=== PATIENT | female | born 1945 | race Caucasian/White ===

== ENCOUNTER → 2019-02-15 11:23 | Outpatient (CLI) | payer MEDICARE, BC, SELFPAY ==
--- NOTE | 2019-02-15 | DI.US.S_ITS ---
PROCEDURE: US PELVIC COMPLETE INDICATIONS: FAMILY HX OF MALIGNANT NEOPLASM OF OVARY TECHNIQUE: Real-time scanning was performed of the pelvic organs, with image documentation. Additional endovaginal scanning was necessary due to incomplete visualization of the adnexal and endometrial structures by transabdominal scanning. COMPARISON: None. FINDINGS: Transabdominal scanning: Limited scanning through the kidneys shows no hydronephrosis. No pathologic free abdominal or pelvic fluid. Endovaginal scanning: Uterus: Uterus is normal in size at 7.1 x 2.7 x 4.0 cm. The endometrium measures 4.5 mm in combined thickness. Ovaries: Normal ovaries bilaterally measuring 2.0 x 1.2 x 1.1 cm on the right and 2.2 x 1.4 x 1.2 cm on the left. IMPRESSION: Normal exam. Dictated by: Rich GANT Interpreted: Mary Pereira MD on 02/15/2019 at 12:52 Approved by: Mary Pereira M.D. on 02/15/2019 at 13:48
== END ==
PROVIDERS: PCP Family Medicine; Visit Provider Family Medicine
DX: Z80.41 Family history of malignant neoplasm of ovary (principal)
CPT/HCPCS: 76830; 76856

== ENCOUNTER 2019-10-02 18:32 | Emergency (ER) | payer MEDICARE, BC, SELFPAY ==
--- NOTE | 2019-10-02 18:34 | DI.US.S_ITS ---
PROCEDURE: US PERIPH VENOUS LOW EXTREM LT INDICATIONS: LT LEG SWELLING TECHNIQUE: Real-time imaging, as well as color and pulse Doppler interrogation, were performed of the lower extremity deep veins from the inguinal ligament to the popliteal fossa. COMPARISON: None. FINDINGS: The common femoral, femoral and popliteal veins are normally compressible, and free of intraluminal thrombus. Color and pulse Doppler demonstrate normal phasic intraluminal flow. There is normal augmentation response to distal compression maneuver. 5.2 x 1.5 x 4.4 cm popliteal cyst. IMPRESSION: No evidence of deep vein thrombosis involving the right lower extremity. Dictated by: Rebecca Escudero MD, PhD on 10/02/2019 at 19:28 Approved by: Rebecca Escudero MD, PhD on 10/02/2019 at 19:29
[2019-10-02 18:40] VITALS: BP 176/79; PULSE 70; RESP 16; TEMP 36.7; O2SAT 98
--- NOTE | 2019-10-02 18:43 | ED_ITS ---
HPI - Extremity Problem General Chief complaint: Extremity Problem,Nontraumatic Stated complaint: DVT Time Seen by Provider: 10/02/19 18:34 Source: patient Mode of arrival: Ambulatory Limitations: no limitations History of Present Illness HPI Narrative: Patient is a 74-year-old female sent over from [facility] for an ultrasound to further evaluated potential left lower extremity DVT. Patient states that for the past couple days she has noticed swelling in her left ankle and also pain behind her left knee. She has no chest pain or shortness of breath. No changes in the skin. No specific trauma. Contacted her primary provider who saw her today who requested that she come to the emergency department for further evaluation. Patient has never had a DVT in the past. Has not tried anything for symptoms right arrival. Related Data Home Medications Medication Instructions Recorded Confirmed aspirin [Aspirin Childrens] 81 mg PO DAILY 10/02/19 10/02/19 Allergies Allergy/AdvReac Type Severity Reaction Status Date / Time No Known Drug Allergies Allergy Verified 10/02/19 18:43 Review of Systems Constitutional Constitutional: Denies fever(s) and Denies headache(s) ENT Ears, Nose, Mouth, and Throat: Denies headache(s) Cardiovascular Cardiovascular: Denies chest pain and Denies dyspnea Respiratory Respiratory: Denies dyspnea Gastrointestinal Gastrointestinal: Denies abdominal pain and Denies vomiting Musculoskeletal Musculoskeletal: Denies myalgias, Denies arthralgias and Denies tingling Comments: Pain in left knee, left ankle swelling Integumentary/Breasts Skin/Breast: Denies lesions and Denies rash Neurologic Neurologic: Denies behavioral changes, Denies headache(s) and Denies tingling Psychiatric Psychiatric: Denies behavioral changes Hematologic/Lymphatic Hematologic/Lymphatic: Denies easy bleeding and Denies easy bruising Patient History Medical History Healthy adult (Acute) Social History Smoking Status: Never smoker Smoking Status: Never smoker alcohol intake frequency: 3 or more drinks per day Alcohol type: wine Substance Use Type: does not use Exam Initial Vital Signs Initial Vital Signs: Vital Signs Temperature 98.1 F 10/02/19 18:40 Pulse Rate 70 10/02/19 18:40 Respiratory Rate 16 10/02/19 18:40 Blood Pressure 176/79 H 10/02/19 18:40 Pulse Oximetry 98 10/02/19 18:40 Const General: cooperative, comfortable and well developed Cardio Pulses: dorsalis pedis present on the left Skin Lesions: no lesions Rashes: no rashes Extrem Other: Very mild swelling to left ankle. Very mild tenderness on the left knee. Otherwise left lower extremity exam unremarkable Psych Appearance: grossly normal and well kempt Scores Wells' Criteria for DVT Active Cancer (Treatment within 6 months): No Bedridden recently >3 days or major surgery within 4 weeks: No Calf Swelling >3cm compared to other leg: No Collateral (nonvericose) superficial veins present: No Entire leg swollen: No Localized tenderness along the deep vein system: Yes Pitting edema, confined to symtomatic leg: No Paralysis, paresis, or recent plaster immobilization of ext: No Previously documented DVT: No Alternative dx to DVT as likely or more likely: Yes Wells' criteria for DVT: -1 Course Orders Ordered: ED Orders 10/02/19 18:34 US periph venous low extrem lt Stat 10/02/19 19:24 Basic Metabolic Panel Stat Complete Blood Count AUTO DIFF Stat Partial Thromboplastin Time Stat Prothrombin Time INR Stat Vital Signs Vital signs: Vital Signs - 8 hr 10/02/19 18:40 10/02/19 20:08 Temperature 98.1 F Pulse Rate 70 78 Respiratory Rate 16 18 Blood Pressure 176/79 H Blood Pressure [Left Arm] 140/80 Pulse Oximetry 98 99 MDM - Extremity (Nontraumatic) Lab Data Attestation: I reviewed the patient's lab results. Result diagrams: 10/02/19 19:24 10/02/19 19:24 Labs: Lab Results 10/02/19 10/02/19 10/02/19 Range/Units 19:24 19:24 19:24 WBC 5.7 (4.5-11.0) X10^3/uL RBC 4.06 (4.0-5.2) X10^6/uL Hgb 12.6 (12.0-16.0) g/dL Hct 37.4 (36-46) % MCV 92.2 (80-100) fL MCH 31.1 (26-34) PG MCHC 33.7 (30-36) % RDW 13.9 (11.6-14.8) % Plt Count 166 (150-400) X10^3/uL Neut % (Auto) 52.1 (50-75) % Lymph % (Auto) 34.8 (25-40) % [place] % (Auto) 9.6 (3-14) % Eos % (Auto) 3.0 (2-4) % Baso % (Auto) 0.5 (0-2) % Neut # (Auto) 3000 (5582-0941) /uL Lymph # (Auto) 2000 (3864-0767) /uL [place] # (Auto) 500 (0-900) /uL Eos # (Auto) 200 (0-450) /uL Baso # (Auto) 0 (0-100) /uL PT 11.2 (10.1-12.7) SECONDS INR 1.0 (0.9-1.3) Sodium 141 (137-145) mmol/L Potassium 4.1 (3.4-5.1) mmol/L Chloride 108 H (98-107) mmol/L Carbon Dioxide 28 (22-32) mmol/L BUN 16 (7-17) mg/dL Creatinine 0.75 (0.52-1.04) mg/dL Estimated GFR > 60.0 (>60) mL/min BUN/Creatinine Ratio 21.3 (6-22) Glucose 94 (80-110) mg/dL Calcium 9.4 (8.4-10.2) mg/dL Imaging Data US - DVT: Radiologist's Impression: [place] [id number] Ultrasound Report Addendum Patient: Juan Figueroa#: [id number] : 6Acct:[id number] Age/Sex: 74 / FDate of Service: 10/02/19 Loc: ED Accession Number: [id number] Procedure: US periph venous low extrem lt Ordering Provider: Rufus Warren D.O. ADDENDUM CORRECTION Corrected on: 10/02/2019; PROCEDURE: US PERIPH VENOUS LOW EXTREM LT INDICATIONS: LT LEG SWELLING TECHNIQUE: Real-time imaging, as well as color and pulse Doppler interrogation, were performed of the lower extremity deep veins from the inguinal ligament to the popliteal fossa. COMPARISON: None. FINDINGS: The common femoral, femoral and popliteal veins are normally compressible, and free of intraluminal thrombus. Color and pulse Doppler demonstrate normal phasic intraluminal flow. There is normal augmentation response to distal compression maneuver. 5.2 x 1.5 x 4.4 cm popliteal cyst. IMPRESSION: No evidence of deep vein thrombosis involving the left lower extremity. Dictated by: Rebecca Escudero MD, PhD on 10/02/2019 at 19:28 Approved by: Rebecca Escudero MD, PhD on 10/02/2019 at 19:29 Dictated by: Rebecca Escudero MD, PhD on 10/02/2019 at 19:44 Approved by: Rebecca Escudero MD, PhD on 10/02/2019 at 19:44 Addendum Dictated By:Rebecca Escudero MD Addendum Signed By: Addendum Cosigned By: DD/ /12/1947 TD/TT: 10/02/[birth year]04/12/1947 PROCEDURE: US PERIPH VENOUS LOW EXTREM LT INDICATIONS: LT LEG SWELLING TECHNIQUE: Real-time imaging, as well as color and pulse Doppler interrogation, were performed of the lower extremity deep veins from the inguinal ligament to the popliteal fossa. COMPARISON: None. FINDINGS: The common femoral, femoral and popliteal veins are normally compressible, and free of intraluminal thrombus. Color and pulse Doppler demonstrate normal phasic intraluminal flow. There is normal augmentation response to distal compression maneuver. 5.2 x 1.5 x 4.4 cm popliteal cyst. IMPRESSION: No evidence of deep vein thrombosis involving the right lower extremity. Dictated by: Rebecca Escudero MD, PhD on 10/02/2019 at 19:28 Approved by: Rebecca Escudero MD, PhD on 10/02/2019 at 19:29 [facility] Narrative Medical decision making narrative: Patient's ultrasound unremarkable. No chest pain shortness of breath, labs unremarkable. Low suspicion for fracture. Will hold on further workup for now. Patient was given return precautions and follow-up instructions. She expressed understanding and agreement. Discharge Plan Departure Patient Disposition: Home Clinical Impression: Left leg swelling Discharge Date/Time: 10/02/19 20:11 Instructions: DI for Peripheral Edema, Unilateral Activity Restrictions/Additional Instructions: There was no evidence of a blood clot on the ultrasound today. Recommend that you keep your scheduled follow-up with your primary provider. Return to the emergency department for any new or worsening symptoms Prescriptions: No Action aspirin [Aspirin Childrens] 81 mg Tablet,Chewable 81 mg PO DAILY RF: 0 Referrals: Rufus Galloway [Primary Care Provider] -
[2019-10-02 19:33] LABS: Add Manual Diff / Slide Review NO; Basophils Absolute Auto 0 /uL (0-100); Basophils Percent Auto 0.5 % (0-2); Eosinophils Absolute Auto 200 /uL (0-450); Hematocrit 37.4 % (36-46); Hemoglobin 12.6 g/dL (12.0-16.0); Lymphocytes Absolute Auto 2000 /uL (1100-4500); Lymphocytes Percent Auto 34.8 % (25-40); Mean Corpuscular HGB Conc 33.7 % (30-36); Mean Corpuscular Hemoglobin 31.1 PG (26-34); Mean Corpuscular Volume 92.2 fL (80-100); Monocytes Absolute Auto 500 /uL (0-900); Monocytes Percent Auto 9.6 % (3-14); Neutrophils Absolute Auto 3000 /uL (1500-7000); Neutrophils Percent Auto 52.1 % (50-75); Platelet Count 166 X10^3/uL (150-400); Red Blood Cell Count 4.06 X10^6/uL (4.0-5.2); Red Cell Distribution Width 13.9 % (11.6-14.8); White Blood Cell Count 5.7 X10^3/uL (4.5-11.0)
[2019-10-02 20:08] VITALS: BP 140/80; PULSE 78; RESP 18; O2SAT 99
[2019-10-02 20:15] LABS: BUN Creatinine Ratio 21.3 (6-22); Blood Urea Nitrogen 16 mg/dL (7-17); Calcium 9.4 mg/dL (8.4-10.2); Carbon Dioxide 28 mmol/L (22-32); Chloride 108 mmol/L (98-107); Estimated Glomerular Filt Rate > 60.0 mL/min (>60); Glucose 94 mg/dL (80-110); HEMOLYSIS < 15 (0-50); Potassium 4.1 mmol/L (3.4-5.1); Sodium 141 mmol/L (137-145)
[2019-10-02 20:23] LABS: Prothrombin Time 11.2 SECONDS (10.1-12.7)
[2019-10-02 20:25] LABS: PTT Partial Thromboplastin Tim 31 SECONDS (26.4-36.2)
== END 2019-10-02 20:11 | disposition home or self-care (01) ==
PROVIDERS: Emergency Provider Emergency Medicine; PCP Family Medicine
DX: M79.89 Other specified soft tissue disorders (principal); M25.562 Pain in left knee
CPT/HCPCS: 80048; 85025; 85610; 85730; 93971; 99283

== ENCOUNTER → 2020-09-11 14:34 | Outpatient (CLI) | payer MEDICARE, BC, SELFPAY ==
[2020-09-11 20:46] LABS: COVID19 - ORCAS (NP or Nasal) Negative (Negative)
== END ==
PROVIDERS: PCP Family Medicine; Visit Provider Physician Assistant Medical
DX: Z20.822 Contact with and (suspected) exposure to COVID-19 (principal)
CPT/HCPCS: U0003